=== PATIENT | male | born 1990 | race Caucasian/White ===

== ENCOUNTER 2020-09-06 08:18 | Emergency (ER) | payer OTHER ==
[~2020-09-06] VITALS: Ht 180.3 cm; Wt 65.8 kg
[~2020-09-06 08:18] MED LIST: AMPDEX10; Cyclobenzaprine5 MG PO; IMPOYZ60 GM TOP; Naprosyn500 MG PO; Percocet 5-3251 EACH PO; Permethrin60 GM TP
[2020-09-06] MEDS ORDERED: IBU600 M1 PO (09:32)
[2020-09-06] MEDS ORDERED: CYCL10 PO (09:32)
[2020-09-06] MEDS ORDERED: Voltaren100 GM TOP (09:32)
== END 2020-09-06 09:39 | disposition home or self-care (01) ==
LOC: ER 08:18
DX: M54.5 Low back pain (principal); F17.210 Nicotine dependence, cigarettes, uncomplicated
CPT/HCPCS: 96372; 99282-25; J1885